=== PATIENT | female | born 1985 | race Caucasian/White ===

== ENCOUNTER → 2019-02-21 | Outpatient (CLI) | payer OTHER ==
--- NOTE | 2019-02-21 11:16 | REP ---
PA and lateral chest: There are no comparisons. The lung ramos are clear. The cardiac size is normal. The pascale, mediastinum, and skeletal structures are unremarkable. Impression: Negative PA and lateral chest. Electronically Signed by Hilton Castillo MD 02/21/2019 11:06 A
== END ==
LOC: M LRY 10:27
PROVIDERS: ATTEND Nurse Practitioner Family
DX: R06.2 Wheezing (principal)
CPT/HCPCS: 71046; 87880; G0463

== ENCOUNTER → 2019-02-21 | Outpatient (REF) | payer OTHER | LOC: M SFHCLERA 10:13 | PROVIDERS: ATTEND Nurse Practitioner Family | DX: J02.9 Acute pharyngitis, unspecified (principal) ==